=== PATIENT | female | born 1995 | race Caucasian/White ===

== ENCOUNTER 2017-11-08 19:37 | Emergency (ER) | payer OTHER ==
[2017-11-08 21:51] LABS: Urine Blood TRACE (NEG); Urine Glucose NEGATIVE (NEG); Urine Protein NEGATIVE (NEG); Urine Specific Gravity 1.025 (1.005-1.030)
[2017-11-08] MEDS ORDERED: ACETAMINOPHEN 500 MG TAB ONE (22:07)
[2017-11-08 22:20] LABS: Absolute Lymphocytes (CBC) 1.8 K/uL (0.7-4.9); Absolute Neutrophil 7.9 K/uL (1.8-8.0); Basophils % 0.4 % (0-1.3); Eosinophils % 0.7 % (0-4.4); Hematocrit 34.7 % (36.0-45.0); Lymphocytes % 16.3 % (15.3-44.8); MCH 29.7 pg (27.0-35.0); MCV 85.4 fL (80-100); MPV 8.6 fL (7.6-11.3); Monocytes % 9.2 % (3.3-12.3); RBC Red Blood Cell Count 4.06 M/uL (3.86-4.86)
[2017-11-08 22:23] LABS: Protime INR 1.01
[2017-11-08 22:33] LABS: Bicarbonate 24 mEq/L (21-31); Glucose Level 88 mg/dL (65-120); Potassium 3.7 mEq/L (3.6-5.0); Sodium Level 133 mEq/L (135-145)
[2017-11-08 22:39] LABS: ALT/SGPT 34 IU/L (10-60); AST/SGOT 21 IU/L (10-42); Albumin 3.2 g/dL (3.2-5.5); Alkaline Phosphatase 51 IU/L (42-121); BUN Blood Urea Nitrogen 11 mg/dL (6-20); Bilirubin Direct 0.1 mg/dL (0-0.2); Bilirubin Total 0.2 mg/dL (0.3-1.2); Magnesium 2.1 mg/dL (1.8-2.5); Protein, Total 6.6 g/dL (6.0-8.3)
[2017-11-08 23:59] LABS: Lipase 31 U/L (22-51)
--- NOTE | 2017-11-09 04:18 | ER ---
Nurse's Notes [facility] Name: Alisia Olivarez Age: 22 yrs Sex: Female : 1995 Arrival Date: 11/08/2017 Time: 19:38 Bed 8 Private MD: Diagnosis: Right Side Pleuritic Chest Pain Presentation: 11/08 19:46 Presenting complaint: Patient states: she is having "right lung pain" which radiates to bb her back for 2 to 3 weeks pain is constant and symptoms seem to be getting worse. pt is 21 weeks , pt denies N/V/D, does have congestion, cough and wheezing. Transition of care: patient was not received from another setting of care. Onset of symptoms was October 2017. Risk Assessment: Do you want to hurt yourself or someone else? Patient reports no desire to harm self or others. Initial Sepsis Screen: Does the patient meet any 2 criteria? No. Patient's initial sepsis screen is negative. Does the patient have a suspected source of infection? No. Patient's initial sepsis screen is negative. Care prior to arrival: None. 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 - Social history:: Smoking status: Patient/guardian denies using tobacco, Patient/guardian denies using alcohol, street drugs. - Ebola Screening: : No symptoms or risks identified at this time. - Family history:: not pertinent. - Hospitalizations: : No recent hospitalization is reported. Screenin:14 Abuse screen: Denies threats or abuse. Denies injuries from another. Nutritional mg2 screening: No deficits noted. Tuberculosis screening: No symptoms or risk factors identified. Fall Risk IV access (20 points). Assessment: 21:54 General: Appears in no apparent distress. comfortable, Behavior is calm, cooperative. mg2 Pain: Complains of pain in right upper quadrant pain Pain does not radiate. Pain currently is 3 out of 10 on a pain scale. Quality of pain is described as aching, Pain began 2 weeks Is intermittent. Neuro: Level of Consciousness is awake, alert, obeys commands, Oriented to person, place, time, situation. Cardiovascular: Capillary refill < 3 seconds Patient's skin is warm and dry. Respiratory: Airway is patent Respiratory effort is even, unlabored, Respiratory pattern is regular, symmetrical. GI: Abdomen is non-distended. : No signs and/or symptoms were reported regarding the genitourinary system. EENT: No signs and/or symptoms were reported regarding the EENT system. Derm: Skin is intact, Skin is pink, warm \\T\\ dry. normal. Musculoskeletal: No signs and/or symptoms reported regarding the musculoskeletal system. 22:56 Reassessment: Patient appears in no apparent distress at this time. Patient and/or mg2 family updated on plan of care and expected duration. Pain level reassessed. Patient is alert, oriented x 3, equal unlabored respirations, skin warm/dry/pink. 11/09 01:27 Reassessment: patient sent to CT. mg2 Vital Signs: 11/08 19:49 BP 123 / 79; Pulse 97; Resp 16 S; Temp 98.2(O); Pulse Ox 99% on R/A; Weight 59.87 kg bb (R); Height 5 ft. 7 in. (170.18 cm) (R); Pain 5/10; 22:56 BP 108 / 68; Pulse 85; Resp 18; Pulse Ox 97% on R/A; Pain 3/10; mg2 11/09 00:25 Pulse 75; Resp 18; Pulse Ox 100% on R/A; Pain 2/10; mg2 01:27 BP 121 / 72; Pulse 80; Resp 18; Pulse Ox 100% on R/A; Pain 1/10; mg2 03:08 BP 105 / 70; Pulse 74; Resp 18; Pulse Ox 100% on R/A; mg2 04:16 BP 100 / 83; Pulse 75; Resp 18; Pulse Ox 100% on R/A; Pain 0/10; mg2 11/08 19:49 Body Mass Index 20.67 (59.87 kg, 170.18 cm) ED Course: 11/08 19:38 Patient arrived in ED. es 19:48 Triage completed. bb 19:49 Arm band placed on right wrist. Patient placed in waiting room, Patient notified of bb wait time. Family accompanied patient. 21:35 Jr Estevez MD is Attending Physician. wa 21:50 Eder Holm RN is Primary Nurse. mg2 22:14 Inserted saline lock: 20 gauge in right antecubital area, using aseptic technique. mg2 Blood collected. 22:57 Patient has correct armband on for positive identification. Placed in gown. Bed in low mg2 position. Call light in reach. Side rails up X2. 23:33 Patient moved to radiology via wheelchair. kw 23:33 X-ray completed. Patient tolerated procedure well. kw 23:33 Patient moved back from radiology. kw 23:34 Chest Pa And Lat (2 Views) XRAY In Process Unspecified. EDMS 06/16 01:36 Radiology exam delayed due to Waiting on Dr. Estevez's consult with patient regarding kw1 exam risks with . Spoke with Dr. Estevez and he confirmed the need for this exam. Risks were explained to patient. Patient moved to CT via wheelchair. 01:51 CT completed. Patient tolerated procedure well. Patient moved back from CT. Patient kw1 taken to ultrasound. 02:01 CT Chest For PE Angio In Process Unspecified. EDMS 02:03 US Extremity Venous W Compression Robert In Process Unspecified. EDMS 04:17 Darnell Minaya MD is Referral Physician. wa 04:23 No provider procedures requiring assistance completed. IV discontinued, intact, mg2 bleeding controlled, No redness/swelling at site. Pressure dressing applied. Administered Medications: 11/08 22:13 Drug: Tylenol 1000 mg Route: PO; mg2 /16 00:24 Follow up: Response: No adverse reaction; Pain is decreased mg2 Outcome: 04:17 Discharge ordered by . wa 04:23 Discharged to home ambulatory, with family. mg2 04:23 Condition: stable 04:23 Discharge instructions given to patient, family, Instructed on discharge instructions, follow up and referral plans. Demonstrated understanding of instructions, follow-up care. 04:32 Patient left the ED. mg2 Signatures: Dispatcher [employer] [facility] Rebeca Varela Brenda, RN RN bb Whitley, Kimberlee Jr Estevez MD MD wa Wilhelm, Kimberly kw1 Eder Holm, RN RN mg2
--- NOTE | 2017-11-09 04:18 | EDPHYS ---
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 23:50 The patient or guardian reports chest pain that is located primarily in the right side wa lower chest pain with associated SOB x 1 week. denies cough or fever. currently 21 weeks preg. admits to mild calf discomfort. The pain radiates to Associated signs and symptoms: Pertinent positives: lower extremity pain, lower extremity swelling, shortness of breath, Pertinent negatives: abdominal pain, cough, palpitations. The chest pain is described as sharp. Duration: The patient or guardian reports a single episode, that is still ongoing, and worsening. Modifying factors: The symptoms are alleviated by nothing. the symptoms are aggravated by deep breath. Severity of pain: At its worst the pain was moderate in the emergency department the pain is actually worse mildly. The patient has not experienced similar symptoms in the past. The patient has been recently seen by a physician: the patient's primary care provider. 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 - Social history:: Smoking status: Patient/guardian denies using tobacco, Patient/guardian denies using alcohol, street drugs. - Ebola Screening: : No symptoms or risks identified at this time. - Family history:: not pertinent. - Hospitalizations: : No recent hospitalization is reported. ROS: 23:52 Constitutional: Negative for fever, chills, and weight loss, Eyes: Negative for injury, wa pain, redness, and discharge, ENT: Negative for injury, pain, and discharge, Neck: Negative for injury, pain, and swelling, Abdomen/GI: Negative for abdominal pain, nausea, vomiting, diarrhea, and constipation, Back: Negative for injury and pain, : Negative for injury, bleeding, discharge, and swelling, MS/Extremity: Negative for injury and deformity, Skin: Negative for injury, rash, and discoloration, Neuro: Negative for headache, weakness, numbness, tingling, and seizure, Psych: Negative for depression, anxiety, suicide ideation, homicidal ideation, and hallucinations. 23:52 Cardiovascular: Positive for chest pain, of the right lower chest, Negative for edema, orthopnea, palpitations, paroxysmal nocturnal dyspnea. 23:52 Respiratory: Positive for shortness of breath, Negative for cough, hemoptysis, sputum production, wheezing. 23:52 All other systems are negative. Exam: 23:54 Constitutional: This is a well developed, well nourished patient who is awake, alert, wa and in no acute distress. Head/Face: Normocephalic, atraumatic. Eyes: Pupils equal round and reactive to light, extra-ocular motions intact. Lids and lashes normal. Conjunctiva and sclera are non-icteric and not injected. Cornea within normal limits. Periorbital areas with no swelling, redness, or edema. ENT: Nares patent. No nasal discharge, no septal abnormalities noted. Tympanic membranes are normal and external auditory canals are clear. Oropharynx with no redness, swelling, or masses, exudates, or evidence of obstruction, uvula midline. Mucous membranes moist. Neck: Trachea midline, no thyromegaly or masses palpated, and no cervical lymphadenopathy. Supple, full range of motion without nuchal rigidity, or vertebral point tenderness. No Meningismus. 23:54 Chest/axilla: Normal chest wall appearance and motion. Nontender with no deformity. No lesions are appreciated. Cardiovascular: Regular rate and rhythm with a normal S1 and S2. No gallops, murmurs, or rubs. Normal PMI, no JVD. No pulse deficits. Respiratory: Lungs have equal breath sounds bilaterally, clear to auscultation and percussion. No rales, rhonchi or wheezes noted. No increased work of breathing, no retractions or nasal flaring. Abdomen/GI: Soft, non-tender, with normal bowel sounds. No distension or tympany. No guarding or rebound. No evidence of tenderness throughout. Back: No spinal tenderness. No costovertebral tenderness. Full range of motion. Skin: Warm, dry with normal turgor. Normal color with no rashes, no lesions, and no evidence of cellulitis. MS/ Extremity: Pulses equal, no cyanosis. Neurovascular intact. Full, normal range of motion. Neuro: Awake and alert, GCS 15, oriented to person, place, time, and situation. Cranial nerves II-XII grossly intact. Motor strength 5/5 in all extremities. Sensory grossly intact. Cerebellar exam normal. Normal gait. 23:55 Musculoskeletal/extremity: Calves: are tender, mild. nh Vital Signs: 19:49 BP 123 / 79; Pulse 97; Resp 16 S; Temp 98.2(O); Pulse Ox 99% on R/A; Weight 59.87 kg bb (R); Height 5 ft. 7 in. (170.18 cm) (R); Pain 5/10; 22:56 BP 108 / 68; Pulse 85; Resp 18; Pulse Ox 97% on R/A; Pain 3/10; mg2 06/16 00:25 Pulse 75; Resp 18; Pulse Ox 100% on R/A; Pain 2/10; mg2 01:27 BP 121 / 72; Pulse 80; Resp 18; Pulse Ox 100% on R/A; Pain 1/10; mg2 03:08 BP 105 / 70; Pulse 74; Resp 18; Pulse Ox 100% on R/A; mg2 04:16 BP 100 / 83; Pulse 75; Resp 18; Pulse Ox 100% on R/A; Pain 0/10; mg2 06/15 19:49 Body Mass Index 20.67 (59.87 kg, 170.18 cm) MDM: 11/08 21:35 Patient medically screened. wa 23:57 Differential diagnosis: concern for PE. will eval. Data reviewed: vital signs, nurses nh notes, lab test result(s), EKG. Test interpretation: by ED physician or midlevel provider: EKG: HR 82. wnl. 11/09 04:16 Test interpretation: by ED physician or midlevel provider: EKG nml. CXR nml. CT chest: nh no PE. 11/08 21:12 Order name: Urine Dipstick--Ancillary (enter results); Complete Time: 23:05 11/08 21:12 Order name: Urine --Ancillary (enter results); Complete Time: 23:05 11/08 21:55 Order name: BMP; Complete Time: 00:02 nh 11/08 21:55 Order name: BNP; Complete Time: 23:06 nh 11/08 21:55 Order name: CBC with Diff; Complete Time: 23:06 nh 11/08 21:55 Order name: Hepatic Function; Complete Time: 00:02 nh 11/08 21:55 Order name: Magnesium; Complete Time: 00:02 nh 11/08 21:55 Order name: PT-INR; Complete Time: 23:06 nh 11/08 23:07 Order name: Chest Pa And Lat (2 Views) XRAY nh 11/08 23:44 Order name: US Extremity Venous W Compression Robert nh 11/08 23:46 Order name: CT Chest For PE Angio nh 11/08 23:51 Order name: Lipase; Complete Time: 00:00 EDMS 11/08 21:55 Order name: EKG; Complete Time: 21:56 nh 11/08 21:55 Order name: Cardiac monitoring; Complete Time: 22:13 nh 11/08 21:55 Order name: EKG - Nurse/Tech; Complete Time: 22:30 nh 11/08 21:55 Order name: IV Saline Lock; Complete Time: 22:13 nh 11/08 21:55 Order name: Labs collected and sent; Complete Time: 22:13 nh 11/08 21:55 Order name: O2 Per Protocol; Complete Time: 22:14 nh 11/08 21:55 Order name: O2 Sat Monitoring; Complete Time: 22:14 nh 11/08 21:55 Order name: Urine Dipstick-Ancillary (obtain specimen); Complete Time: 22:14 nh Administered Medications: 11/08 22:13 Drug: Tylenol 1000 mg Route: PO; mg2 11/09 00:24 Follow up: Response: No adverse reaction; Pain is decreased mg2 Disposition: 11/09/17 04:17 Discharged to Home. Impression: Right Side Pleuritic Chest Pain. - Condition is Stable. - Discharge Instructions: Pleurisy, [id number]. - Medication Reconciliation Form, Thank You Letter, Antibiotic Education, Prescription Opioid Use form. - Follow up: Darnell Minaya MD; When: 2 - 3 days; Reason: Recheck today's complaints. - Problem is new. - Symptoms have improved. - Notes: take tylenol for pain as needed as discussed. return to ER immediately for rapidly worsening concerns Signatures: Dispatcher [employer] EDFadumo Jacobs, RN RN bb Jr Estevez MD MD wa Gardose, Michele, RN RN mg2 Corrections: (The following items were deleted from the chart) 11/08 23:50 23:48 LIPASE+C.LAB.BRZ ordered. [facility] 11/09 04:32 04:17 11/09/2017 04:17 Discharged to Home. Impression: Right Side Pleuritic Chest Pain. mg2 Condition is Stable. Forms are Medication Reconciliation Form, Thank You Letter, Antibiotic Education, Prescription Opioid Use. Follow up: Darnell Minaya; When: 2 - 3 days; Reason: Recheck today's complaints. Problem is new. Symptoms have improved. [place]
--- NOTE | 2017-11-09 08:46 | RAD REPORT ---
EXAM DESCRIPTION: CT - Chest For Pe Angio - 11/09/2017 3:08 am CLINICAL HISTORY: Chest pain for 3 weeks COMPARISON: None. TECHNIQUE: Dynamically enhanced axial 3 mm thick images of the chest were obtained during administra tion of <100> mL Isovue 370 IV contrast. Coronal and oblique reconstruction images were generated and reviewed. Exam utilizes a protocol for optimal evaluation of pulmonary arterial tree. A preliminary report was generated by [employer] radiologic and reviewed prior to this dictation Maximum intensity projections 3D imaging was utilized All CT scans are performed using dose optimization technique as appropriate and may include automated exposure control or mA/KV adjustment according to patient size. FINDINGS: A pulmonary embolus is not seen. A thoracic aortic aneurysm is not noted. A pleural effusion is not seen. A pericardial effusion is not seen. A lung consolidation is not present. IMPRESSION: Negative for a pulmonary embolism.
--- NOTE | 2017-11-09 08:46 | RAD REPORT ---
EXAM DESCRIPTION: Drew Crespo (2 Views)11/08/2017 11:36 pm CLINICAL HISTORY: Chest pain COMPARISON: none FINDINGS: The lungs appear clear of acute infiltrate. The heart is normal size IMPRESSION: No acute abnormalities displayed
--- NOTE | 2017-11-09 08:47 | RAD REPORT ---
EXAM DESCRIPTION: VASExtrem Venous W Compress Bil11/09/2017 2:02 am CLINICAL HISTORY: Bilateral leg pain COMPARISON: none FINDINGS: The common femoral, superficial femoral, popliteal and posterior tibial veins bilaterally are compressible and demonstrate augmentation. Doppler demonstrates good flow. IMPRESSION: No evidence of deep venous thrombosis involving either lower extremity.
--- NOTE | 2017-11-09 13:43 | EKG ---
Test Date: 2017-11-08 Test Time: 22:23:09 General Office Associate: MEASUREMENT RESULTS: Intervals: Rate: 82 AK: 140 QRSD: 68 QT: 372 QTc: 434 [place]: P: 50 AK: 140 QRS: 51 T: 39 INTERPRETIVE STATEMENTS: Normal sinus rhythm Normal ECG No previous ECG available for comparison Electronically Signed On 11-09-17 13:43:05 CDT by Maximo Thompson
== END 2017-11-09 04:32 | disposition home or self-care (01) ==
LOC: ER 19:37
DX: R07.89 Other chest pain (principal); Z3A.21 21 weeks gestation of pregnancy
CPT/HCPCS: 36415; 71046; 71275; 80048; 80076; 81003; 81025; 83690; 83735; 83880; 85025; 85610; 93005; 93970; 99284; Q9967

== ENCOUNTER 2018-03-08 07:16 | Inpatient (IN) | payer OTHER ==
[2018-03-08] MEDS ORDERED: CARBOPROST TROME 250 MCG/ML IM PRN (11:21)
[2018-03-08] MEDS ORDERED: MEPERIDINE HCL 25 MG/0.5 ML IV PRN (11:21)
[2018-03-08] MEDS ORDERED: METHYLERGONOVINE 0.2MG/ML AMP IM PRN (11:21)
[2018-03-08] MEDS ORDERED: Ringers Lactate 1,000 ML IV PRN (11:21)
[2018-03-08] MEDS ORDERED: PROMETHAZINE 25 MG/ML VIAL IM PRN (11:21)
[2018-03-08] MEDS ORDERED: BUTORPHANOL 1 MG/ML INJ IV PRN (11:21)
[2018-03-08 11:43] LABS: RPR Titer ND
[2018-03-08 11:51] LABS: Urine Appearance CLEAR; Urine Bilirubin NEGATIVE (NEG); Urine Blood NEGATIVE (NEG); Urine Color YELLOW; Urine Glucose NEGATIVE (NEG); Urine Protein NEGATIVE (NEG); Urine Urobilinogen 0.2 mg/dL (0.2-1.0)
[2018-03-08 11:58] LABS: Urine Microscopic Reflex NO UMIC
[2018-03-08] MEDS ORDERED: OXYTOCIN/LR 20 UNIT/1,000 ML BAG IV SCH ×2 (12:00→20:00)
[2018-03-08] MEDS ORDERED: Ringers Lactate 1,000 ML IV SCH (12:00)
[2018-03-08 12:33] LABS: Absolute Lymphocytes (CBC) 1.1 K/uL (0.7-4.9); Absolute Monocytes 0.9 K/uL (0.1-1.3); Absolute Neutrophil 10.9 K/uL (1.8-8.0); Basophils % 0.3 % (0-1.3); Eosinophils % 0.2 % (0-4.4); Lymphocytes % 8.5 % (15.3-44.8); MCH 26.5 pg (27.0-35.0); MCV 79.9 fL (80-100); RBC Red Blood Cell Count 4.88 M/uL (3.86-4.86)
--- NOTE | 2018-03-08 14:07 | PREOPHP ---
Date of Admission: 03/08/2018 A 22-year-old primigravida, 38 weeks 4 days, scheduled for induction next Saturday. Came in this morn ing with regular contractions. Ranjith every 1-2 minutes firmly. She was 1-1/2 on admission. S he is now 2-1/2. 70% effaced, vertex, well applied, -1 station. We will admit her, get her IV start ed. Rupture membranes, probably go with IV analgesics initially. She will probably request epidural once she gets little bit further along. Full labor talk given. GUSTAVO/DAVID Voice ID: [id number]
[2018-03-08] MEDS ORDERED: FENTANYL CITR 100 MCG/2 ML IV ONE (14:23)
[2018-03-08] MEDS ORDERED: ROPIVACAINE HCL 100 ML IV PRN (14:23)
[2018-03-08] MEDS ORDERED: ROPIVACAINE HCL 0.2% 20ML AMP IV ONE (14:24)
[2018-03-08] MEDS ORDERED: LIDOCAINE 1% MPF 30 ML VIAL SQ ONE (14:25)
[2018-03-08] MEDS ORDERED: ACETAMINOPHEN 500 MG TAB PO PRN (19:14)
[2018-03-08] MEDS ORDERED: DOCUSATE NA/SENNA CONC 1 TAB PO PRN (19:14)
[2018-03-08] MEDS ORDERED: BISACODYL 10 MG RECTAL SUPP RECT PRN (19:14)
[2018-03-08] MEDS ORDERED: Oxycodone HCl/Acetaminophen 1 TAB TAB PO PRN (19:14)
[2018-03-08] MEDS ORDERED: DIPHENHYDRAMINE 25 MG TAB/CAP PO PRN (19:14)
[2018-03-08] MEDS: IBUPROFEN 200 MG TAB PO PRN (21:39)
[2018-03-09] MEDS: Oxycodone HCl/Acetaminophen 1 TAB TAB PO PRN ×2 (00:53→15:05)
--- NOTE | 2018-03-09 04:26 | OP ---
Surgeon: Darnell Minaya MD A 22-year-old primigravida, 38 weeks 4 days, came in active labor. Stadol 1 mg IV x2, then epidural anesthesia. Rh positive, immune to Rubella. Negative beta strep screen. Second stage of approximat karlos 30 minutes. Spontaneous vaginal delivery of an estimated 7-1/2 to 8 pounds female, Apgars 9 and 9. Second degree midline laceration simulating episiotomy, repaired with 2-0 chromic. Latasha basurto of the placenta, which was inspected and noted to be intact and normal. A 350 cc or less blood loss. The patient tolerated all procedures well. Final Diagnoses: Intrauterine gestation, 38 weeks 4 days, spontaneous labor, vaginal delivery, epidu ral anesthesia. GUSTAVO/DAVID Voice ID: [id number] Report ID: [id number]
[2018-03-09] MEDS: IBUPROFEN 200 MG TAB PO PRN ×2 (11:17→20:19)
[2018-03-09 15:16] VITALS: BMI 27.1
[2018-03-09] MEDS ORDERED: INFLUENZA VACCINE (for 3y+) 0.5 ML DOSE IMVAC ONE (18:00)
[2018-03-09 22:44] LABS: RPR (Rapid Plasma Reagin) NON-REACT (NON-REACT)
[2018-03-10] MEDS: IBUPROFEN 200 MG TAB PO PRN (03:30)
--- NOTE | 2018-03-10 03:48 | DS ---
A 22-year-old primigravida, 38 weeks 4 days, came in active labor. Subsequently delivered an 8 pound 5 ounce female. Apgars 9 and 9. Midline second-degree laceration repaired with 2-0 chromic. Epidu ral anesthesia. Schultze delivery of the placenta was inspected and noted to be intact and normal. A 350 cc blood loss estimate. Rh positive. Immune to Rubella. Negative beta strep screen. Postpar michelle afebrile, ambulating and voiding. Lochia is normal. Will be dismissed either later this evening or tomorrow morning. To report back to my office in 6 weeks for followup, to report any temperature elevation of 100 degrees or greater, severe pain, heavy bleeding, or any other type of abnormalities . Dismissed with tramadol for analgesia, although she may elect to take Motrin instead. She has had her Tdap immunization during the . Flu shot offered. No post epidural problems. Final Diagnoses: Term intrauterine at 38 weeks 4 days, vaginal delivery, epidural anesthes ia. Flu shot offered. GUSTAVO/DAVID Voice ID: [id number] Report ID: [id number]
[2018-03-11 04:18] LABS: HBsAG Nonreactive (Nonreactive)
[2018-03-11 14:08] VITALS: BP 135/73; TEMP 97.4
== END 2018-03-10 09:05 | disposition home or self-care (01) | DRG 807 ==
LOC: L&D 07:16 → 2ND-WC 11:04
PROVIDERS: ADMIT Specialist; ATTEND Specialist
PROC: 10E0XZZ Delivery of Products of Conception, External Approach (ICD-10-PCS; principal; 2018-03-09)
PROC: 0KQM0ZZ Repair Perineum Muscle, Open Approach (ICD-10-PCS; 2018-03-09)
PROC: 10907ZC Drainage of Amniotic Fluid, Therapeutic from Products of Conception, Via Natural or Artificial Opening (ICD-10-PCS; 2018-03-09)
DX: O70.1 Second degree perineal laceration during delivery (principal); Z37.0 Single live birth; Z3A.38 38 weeks gestation of pregnancy
CPT/HCPCS: 36415; 81003; 85025; 86592; 86850; 86900; 86901; 87340; J0595; J2210; J2550; J2590; J2795; J3010; Q2035